=== PATIENT | male | born 1965 ===

== ENCOUNTER 2023-03-14 08:14 | Inpatient (IN) | payer OTHER ==
[~2023-03-14] VITALS: Ht 167.6 cm; Wt 97.5 kg
[2023-03-14 09:57] LABS: PH,URINE 6.5 (5.0-8.0); URINE APPEARANCE Clear; URINE BILIRRUBIN Negative (NEGATIVE); URINE BLOOD Moderate; URINE COLOR Yellow; URINE GLUCOSE Negative (NEGATIVE); URINE LEUKOCYTE Negative; URINE NITRATE Negative; URINE PROTEIN Negative (NEGATIVE); URINE UROBILINOGEN 0.2 E.U./dl
[2023-03-14 09:58] LABS: HEMATOCRIT 42.7 % (39.0-48.0); HEMOGLOBIN 14.3 g/dL (13-16.00); MEAN CELL VOLUME 83.3 fL (80.0-100.00); MEAN CORPUSCULAR HEMOGLOBIN 27.9 pg (27.00-32.0); MEAN CORPUSCULAR HGB CONC 33.5 g/dl (32.0-36.0); PLATELET COUNT 208 K/uL (150-450); RED BLOOD COUNT 5.12 M/uL (4.00-6.00); RED CELL DISTRIBUTION WIDTH 16.2 % (11.5-14.5)
[2023-03-14 09:59] LABS: URINE RBC 55.1 uL (0.0-20.8); URINE WBC 2.2 uL (0.0-23.2)
[2023-03-14 10:01] LABS: URINE BACTERIA 2.5 uL (0.0-1933); URINE EPITHELIAL CELLS 0.4 uL (0.0-38.8)
[2023-03-14] MEDS ORDERED: METFORMIN HCL500 M3 PO (10:12)
[2023-03-14] MEDS ORDERED: ZOCOR20 MG PO (10:13)
[2023-03-14] MEDS ORDERED: ALLOPURINOL300 MG PO (10:13)
[2023-03-14] MEDS ORDERED: HORIZANT300 MG PO (10:13)
[2023-03-14] MEDS ORDERED: ENALAPRIL MALEA10 MG PO (10:14)
[2023-03-14 10:27] LABS: INR 0.98; PARTIAL THROMBOPLASTIN TIME 27.5 SECONDS (22.0-34.0); PROTHROMBIN TIME 10.3 SECONDS (9.0-11.5)
[2023-03-14 10:32] LABS: ALBUMIN 3.9 gm/dL (3.4-5.0); BILIRUBIN TOTAL 0.37 mg/dL (0.3-1.2); CALCIUM 8.8 mg/dL (8.5-10.1); CREATININE SERUM 0.79 mg/dL (0.70-1.30); GFR 100.05; GLOBULINA 3.4 G/DL (2.4-3.5); POTASSIUM 4.01 mEq/L (3.5-5.1); TOTAL PROTEIN 7.3 gm/dL (6.4-8.2)
[2023-03-19 06:22] LABS: HEMATOCRIT 34.8 % (39.0-48.0); HEMOGLOBIN 11.8 g/dL (13-16.00); MEAN CORPUSCULAR HEMOGLOBIN 27.9 pg (27.00-32.0); PLATELET COUNT 200 K/uL (150-450); RED BLOOD COUNT 4.24 M/uL (4.00-6.00); RED CELL DISTRIBUTION WIDTH 15.8 % (11.5-14.5)
[2023-03-19] MEDS ORDERED: DUI500 PO (07:53)
[2023-03-19] MEDS ORDERED: PERCOCET 5-3251 EACH PO (07:53)
[2023-03-19] MEDS ORDERED: ELIQUIS2.5 MG PO (07:53)
[2023-03-20 06:40] LABS: HEMATOCRIT 31.8 % (39.0-48.0); HEMOGLOBIN 10.5 g/dL (13-16.00); MEAN CELL VOLUME 83.7 fL (80.0-100.00); MEAN CORPUSCULAR HEMOGLOBIN 27.6 pg (27.00-32.0); PLATELET COUNT 183 K/uL (150-450); RED CELL DISTRIBUTION WIDTH 15.2 % (11.5-14.5)
== END 2023-03-20 22:03 | DRG 470 ==
LOC: SURG 03-18 06:09 → O/R 03-18 06:09 → SURG 03-18 08:15
PROVIDERS: ADMIT Orthopaedic Surgery; ATTEND Orthopaedic Surgery
PROC: 0MNP0ZZ Release Left Knee Bursa and Ligament, Open Approach (ICD-10-PCS; 2023-03-18)
PROC: 0SRD0J9 Replacement of Left Knee Joint with Synthetic Substitute, Cemented, Open Approach (ICD-10-PCS; principal; 2023-03-18 10:00)
DX: M17.12 Unilateral primary osteoarthritis, left knee (principal); D62 Acute posthemorrhagic anemia; M22.12 Recurrent subluxation of patella, left knee; I10 Essential (primary) hypertension; E11.9 Type 2 diabetes mellitus without complications; Z79.4 Long term (current) use of insulin